=== PATIENT | male | born 1995 | race African-American/Black ===

== ENCOUNTER 2016-03-11 18:12 | Emergency (ER) | payer OTHER, MEDICAID ==
[~2016-03-11] VITALS: Ht 182.9 cm; Wt 70.5 kg
[2016-03-11 18:23] VITALS: BP 119/71; PULSE 98; RESP 16; TEMP 97.3; O2SAT 96
--- NOTE | 2016-03-11 18:39 | PD ---
HPI Chief Complaint: Injury Time Seen by Provider: 18:39 Travel History International Travel<30 days: No Contact w/Intl Traveler<30days: No Traveled to known affect area: No History of Present Illness HPI 20-year-old male presents to the emergency department for evaluation of left ankle injury that occurred approximately 2 days ago while playing soccer. He states that someone was stepping on his left ankle and "crashed my ankle". He states he has been ambulatory since that occurred. Patient does report history of only having one kidney. He denies taking any prescribed medications. He denies any other complaints or injury at this time. PFSH Past Medical History Autoimmune Disease: No Anxiety: Yes Depression: No Cardiovascular Problems: No Developmental Delay: No Diminished Hearing: No Gastrointestinal Disorders: Yes (CHRONIC N/V, GASTRITIS) Genitourinary: Yes (MULTICYSTIC KIDNEY DISORDER, ONLY RIGHT KIDNEY FUNCTIONAL) Hiatal Hernia: No Musculoskeletal: No Neurologic: No Psychiatric: Yes Respiratory: No Immunizations Current: Yes Ulcer: No Past Surgical History Pacemaker: No Other Surgery: Yes (CIRCUMCISION) Social History Alcohol Use: No Tobacco Use: No Substance Use: No Allergies-Medications (Allergen,Severity, Reaction): Coded Allergies: Egg Allergy (Verified Allergy, Intermediate, SWELLING, 03/11/16) Lactose (Verified Adverse Reaction, Intermediate, Diarrhea, 03/11/16) Reported Meds & Prescriptions Reported Meds & Active Scripts Active No Active Prescriptions or Reported Medications Review of Systems Except as stated in HPI: all other systems reviewed are Neg Physical Exam Narrative GENERAL: Well-developed well-nourished male patient, ambulatory. Afebrile. SKIN: Warm and dry. HEAD: Normocephalic. Atraumatic. EYES: No scleral icterus. No injection or drainage. NECK: Supple, trachea midline. No JVD or lymphadenopathy. CARDIOVASCULAR: Regular rate and rhythm without murmurs, gallops, or rubs. Left pedal pulse 2+. Capillary refill less than 2 seconds to the digits of the left foot. RESPIRATORY: Breath sounds equal bilaterally. No accessory muscle use. Lungs sounds are clear to auscultation. MUSCULOSKELETAL: No cyanosis, or edema. Patient has tenderness over left lateral ankle. Negative Ashley's test. BACK: Nontender without obvious deformity. No CVA tenderness. Data Data Last Documented VS Vital Signs Date Time Temp Pulse Resp B/P Pulse Ox O2 Delivery O2 Flow Rate FiO2 1/20/17 18:23 97.3 98 16 119/71 96 [facility] Medical Decision Making Medical Screen Exam Complete: Yes Emergency Medical Condition: Yes Medical Record Reviewed: Yes Differential Diagnosis Contusion versus fracture versus sprain versus dislocation Narrative Course 20-year-old male presents to the emergency department for evaluation of left ankle injury that occurred 2 days ago. X-ray of the left ankle is ordered and pending. Care is transitioned to oncoming [place] for further evaluation and disposition. Scripts No Active Prescriptions or Reported Meds Janeth Villegas Mar 11, 2016 18:39
--- NOTE | 2016-03-11 21:02 | RADRPT ---
EXAM DATE/TIME: 03/11/2016 18:53 [facility] COMPARISON: No previous studies available for comparison. INDICATIONS : Pain from ankle being stepped on. MEDICAL HISTORY : None. SURGICAL HISTORY : None. ENCOUNTER: Initial ACUITY: 1 day PAIN SCORE: 3/10 LOCATION: Left lateral ankle. FINDINGS: Three view exam was performed of the left ankle. The bony structures are in normal alignment. No ev idence of fracture, dislocation, or soft tissue swelling. The ankle mortise is intact. No radiopaqu e foreign bodies are seen. Bony mineralization is normal. CONCLUSION: 1. No acute bony abnormality. Harinder Ocampo MD on March 11, 2016 at 21:00 Board Certified Radiologist. This report was verified electronically.
--- NOTE | 2016-03-11 21:27 | PD ---
Physical Exam Time Seen by Provider: :20 Data Data Last Documented VS Vital Signs Date Time Temp Pulse Resp B/P Pulse Ox O2 Delivery O2 Flow Rate FiO2 03/11/16 18:23 97.3 98 16 119/71 96 Orders Ankle, Complete ([id number]) (03/11/16 ) [facility] Medical Record Reviewed: Yes Supervised Visit with JJ: No Narrative Course I assumed care of this patient pending x-ray imaging left ankle. 2 days ago the patient was putting soccer and someone stepped on his left foot, twisting his left ankle. He has pain in the lateral aspect of the left ankle which is reproduced when walking. Examination reveals no bony reproducible tenderness to palpation. He has been ambulatory here in the ED. X-ray imaging is negative. His examination and history are consistent with mild lateral ankle sprain. He is stable for discharge. Diagnosis Primary Impression: Left ankle sprain Qualified Code: S93.402A - Sprain of left ankle, unspecified ligament, initial encounter Additional Instruction: Avoid activities of reproduced pain. Rest. Ice several times a day 10-15 minutes at a time until swelling is resolved. Follow-up with primary care physician as needed. Med/Other Pt SpecificInfo: No Change to Meds Scripts No Active Prescriptions or Reported Meds Disposition: 01 DISCHARGE HOME Condition: Stable Connor Monroe Mar 11, 2016 21:27
== END 2016-03-11 21:39 | disposition home or self-care (01) ==
LOC: NEPB 18:12
DX: M25.572 Pain in left ankle and joints of left foot (principal); X50.0XXA Overexertion from strenuous movement or load, initial encounter; Y93.66 Activity, soccer; Y92.838 Other recreation area as the place of occurrence of the external cause
CPT/HCPCS: 73610; 99283